=== PATIENT | female | born 1950 | race Hispanic/Latino ===

== ENCOUNTER 2017-08-31 11:13 | Outpatient (CLI) | payer OTHER | END 2017-08-31 11:14 | disposition home or self-care (01) | LOC: BICRAD 11:13 | PROVIDERS: ATTEND Internal Medicine Rheumatology | DX: M79.672 Pain in left foot (principal); M18.12 Unilateral primary osteoarthritis of first carpometacarpal joint, left hand; M76.892 Other specified enthesopathies of left lower limb, excluding foot ==

== ENCOUNTER 2018-07-09 14:04 | Outpatient (CLI) | payer MEDICARE | END 2018-07-09 14:05 | disposition home or self-care (01) | LOC: BICMAMMO 14:04 → EDSTATUS 14:30 | PROVIDERS: ATTEND Physician Assistant | DX: N64.4 Mastodynia (principal); R92.1 Mammographic calcification found on diagnostic imaging of breast | CPT/HCPCS: 77066; G0279 ==

== ENCOUNTER 2020-09-21 13:33 | Outpatient (CLI) | payer MEDICARE ==
--- NOTE | 2020-09-21 14:28 | RAD ---
8 views of the cervical spine: 09/21/2020 COMPARISON: None HISTORY: Cervical spine pain, arthritis FINDINGS: Open-mouth odontoid view and Fuchs view demonstrates a normal-appearing C1-2 articulation a nd dens respectively. The neutral lateral exam demonstrates disc space narrowing with degenerative endplate change and ante rior osteophyte formation at multiple levels within the cervical spine, most prominent at C5-6 and C6-7. There is no significant anterolisthesis or retrolisthesis noted on the neutral lateral, flexion later al, or extension lateral views. Oblique imaging demonstrates osteophyte encroachment on the right neural foramina at C4-5 and C5-6 an d on the left neural foramina at C5-6 and C6-7. No prevertebral soft tissue swelling. IMPRESSION: Multilevel cervical spine degenerative change as above.
== END 2020-09-21 13:34 | disposition home or self-care (01) ==
LOC: BICRAD 13:33
PROVIDERS: ATTEND Internal Medicine Rheumatology
DX: M54.2 Cervicalgia (principal); M47.812 Spondylosis without myelopathy or radiculopathy, cervical region
CPT/HCPCS: 72052

== ENCOUNTER 2020-10-18 08:13 | Outpatient (CLI) | payer MEDICARE ==
[2020-10-18] MEDS ORDERED: Iopamidol-370 76% 500 ML 1 ML ONE (09:46)
== END 2020-10-18 08:14 | disposition home or self-care (01) ==
LOC: BICCT 08:13
PROVIDERS: ATTEND Internal Medicine Gastroenterology
DX: R10.13 Epigastric pain (principal); K57.30 Diverticulosis of large intestine without perforation or abscess without bleeding; K44.9 Diaphragmatic hernia without obstruction or gangrene
CPT/HCPCS: 74177; 82565; Q9967

== ENCOUNTER 2020-11-30 08:52 | Outpatient (CLI) | payer MEDICARE | END 2020-11-30 08:53 | disposition home or self-care (01) | LOC: NM 08:52 | PROVIDERS: ATTEND Internal Medicine Gastroenterology | DX: R10.13 Epigastric pain (principal); R11.0 Nausea; R68.81 Early satiety | CPT/HCPCS: 78264; A9541 ==

== ENCOUNTER 2021-01-06 10:03 | Outpatient (CLI) | payer MEDICARE | END 2021-01-06 10:04 | disposition home or self-care (01) | LOC: BICMAMMO 10:03 | PROVIDERS: ATTEND Physician Assistant | DX: Z12.31 Encounter for screening mammogram for malignant neoplasm of breast (principal) | CPT/HCPCS: 77063; 77067 ==

== ENCOUNTER 2021-06-01 09:11 | Outpatient (CLI) | payer MEDICARE | END 2021-06-01 09:12 | disposition home or self-care (01) | LOC: BICMAMMO 09:11 | PROVIDERS: ATTEND Internal Medicine Rheumatology | DX: M81.0 Age-related osteoporosis without current pathological fracture (principal) | CPT/HCPCS: 77080 ==

== ENCOUNTER 2023-04-25 10:01 | Outpatient (CLI) | payer MEDICARE | END 2023-04-25 10:02 | disposition home or self-care (01) | LOC: BICMAMMO 10:01 | PROVIDERS: ATTEND Internal Medicine Rheumatology | DX: M81.0 Age-related osteoporosis without current pathological fracture (principal) | CPT/HCPCS: 77080 ==

== ENCOUNTER 2024-02-19 11:30 | Outpatient (CLI) | payer MEDICARE | END 2024-02-19 11:31 | disposition home or self-care (01) | LOC: BICMAMMO 11:30 | PROVIDERS: ATTEND Physician Assistant | DX: Z12.31 Encounter for screening mammogram for malignant neoplasm of breast (principal) | CPT/HCPCS: 77063; 77067 ==

== ENCOUNTER 2025-03-04 10:39 | Outpatient (CLI) | payer MEDICARE | END 2025-03-04 10:40 | disposition home or self-care (01) | LOC: BICMAMMO 10:39 | PROVIDERS: ATTEND Physician Assistant | DX: Z12.31 Encounter for screening mammogram for malignant neoplasm of breast (principal) | CPT/HCPCS: 77063; 77067 ==